=== PATIENT | female | born 1965 | race Caucasian/White ===

== ENCOUNTER 2018-09-02 23:22 | Emergency (ER) | payer MEDICAID ==
[~2018-09-02] VITALS: Ht 167.6 cm; Wt 104.3 kg
[2018-09-02 23:34] VITALS: BP 151/84
[2018-09-03] MEDS ORDERED: POTASSIUM CHL 20 Meq TABLET PO ONE (01:15)
[2018-09-03] MEDS ORDERED: FUROSEMIDE 20 MG TAB PO ONE (01:15)
== END 2018-09-03 01:30 | disposition home or self-care (01) ==
LOC: ER 23:31
DX: R60.0 Localized edema (principal)

== ENCOUNTER 2024-11-02 12:33 | Inpatient (IN) | payer OTHER, MEDICAID ==
[~2024-11-02] VITALS: Ht 162.6 cm; Wt 113.1 kg
--- NOTE | 2024-11-02 12:43 | ED.PDOC ---
History of Present Illness HPI Comments 59-year-old female with PMHx A-Fib presents with a chief complaint of SOB, palpitations, and anxiety. Patient states that she took a shower and when she got out, she started to feel really anxious and got SOB. Patient states that she became more anxious at the SOB and then started to feel her heart beat fast. Patient takes Eliquis for her A-Fib, and reports being compliant with her medications. Time Seen by MD: 12:35 Primary Care Provider: IRAJ Reviewed Notes: Medications, Allergies Allergies: Coded Allergies: NO KNOWN ALLERGIES (Unverified , 09/02/18) Information Source: Patient Mode of Arrival: EMS Severity: Moderate Timing: Minutes Duration: Minutes Prehospital treatment: 12 Lead EKG, Fare Collector Past Medical History PAST MEDICAL HISTORY: AFIB Surgical History: Denies all surgeries TOBACCO SAMPLER History: No Pertinent TOBACCO SAMPLER History Family History Family History: Unknown Social History Smoker: Non-Smoker Alcohol: Denies ETOH Use Drugs: Denies Drug Use Lives In: Home Constitutional: denies: chills, diaphoresis, fatigue, fever, malaise, sweats, weakness, others EENTM: denies: blurred vision, double vision, ear bleeding, ear discharge, ear drainage, ear pain, ear ringing, eye pain, eye redness, hearing loss, mouth pain, mouth swelling, nasal discharge, nose bleeding, nose congestion, nose pain, photophobia, tearing, throat pain, throat swelling, voice changes, others Respiratory: reports: shortness of breath; denies: cough, hemoptysis, orthopnea, SOB at rest, SOB with excertion, stridor, wheezing, others Cardiovascular: reports: palpitations; denies: chest pain, dizzy spells, diaphoresis, Dyspnea on exertion, edema, irregular heart beat, left arm pain, lightheadedness, PND, syncope, others Gastrointestinal: denies: abdomen distended, abdominal pain, blood streaked bowels, constipated, diarrhea, dysphagia, difficulty swallowing, hematemesis, melena, nausea, poor appetite, poor fluid intake, rectal bleeding, rectal pain, vomiting, others Genitourinary: denies: abnormal vagina bleeding, burning, dyspareunia, dysuria, flank pain, frequency, hematuria, incontinence, pain, , vagina discharge, urgency, others Neurological: denies: dizziness, fainting, headache, left sided numbness, left sided weakness, numbness, paresthesia, pre-existing deficit, right sided numbness, right sided weakness, seizure, speech problems, tingling, tremors, weakness, others Musculoskeletal: denies: back pain, gout, joint pain, joint swelling, muscle pain, muscle stiffness, neck pain, others Integumetry: denies: bruises, change in color, change in hair/nails, dryness, laceration, lesions, lumps, rash, wounds, others Allergic/Immunocompromised: denies: Difficulty Healing, Frequent Infections, Hives, Itching, others Hematologic/Lymphatic: denies: anemia, blood clots, easy bleeding, easy bruising, swollen glands, others Endocrine: denies: excessive hunger, excessive sweating, excessive thirst, excessive urination, flushing, intolerance to cold, intolerance to heat, unexplained weight gain, unexplained weight loss, others Psychiatric: reports: anxiety; denies: bipolar disorder, depression, hopeless, panic disorder, schizophrenia, sleepless, suicidal, others All Other Systems: Reviewed and Negative Physical Exam General Appearance: No Apparent Distress, Normal HEENT: Normal ENT Inspection, Pharynx Normal, TMs Normal Neck: Full Range of Motion, Non-Tender, Normal, Normal Inspection Respiratory: Chest Non-Tender, Lungs Clear, No Accessory Muscle Use, No Respiratory Distress, Normal Breath Sounds Cardiovascular: No Edema, No JVD, No Murmur, No Gallop, Normal Peripheral Pulses, Regular Rate/Rhythm Breast Exam: Deferred Gastrointestinal: No Organomegaly, Non Tender, No Pulsatile Mass, Normal Bowel Sounds, Soft Genitalia: Deferred Pelvic: Deferred Rectal: Deferred Extremities: No calf tenderness, Normal capillary refill, Normal inspection, Normal range of motion, Non-tender, No pedal edema Musculoskeletal : Apperance: Normal Neurologic: Alert, roof shingler II-XII nml as Tested, No Motor Deficits, Normal Affect, Normal Mood, No Sensory Deficits Cerebellar Function: Normal Reflexes: Normal Skin: Dry, Normal Color, Warm Lymphatic: No Adenopathy Was a procedure done? Was a procedure done?: No Differential Dx Considerations may include: AFib with RVR, electrolyte abnormality, infectious etiology, viral syndrome X-Ray, Labs, Meds, VS Vital Signs Date Time Temp Pulse Resp B/P (MAP) Pulse Ox O2 Delivery O2 Flow Rate FiO2 11/02/24 13:56 127 129/98 11/02/24 13:45 97.6 127 24 129/98 (108) 98 97.6 11/02/24 13:30 97.6 118 19 148/94 (112) 98 97.6 11/02/24 13:11 Nasal Cannula* 3 32 11/02/24 12:57 98.0 120 18 94/54 (67) 95 98.0 11/02/24 12:34 133 Lab Test 11/02/24 13:55 11/02/24 12:58 11/02/24 12:41 Range/Units Troponin I High Sensitivity Pending 3 L </=34 ng/L White Blood Count 9.3 4.4-10.8 10^3/uL Red Blood Count 4.51 4.0-5.20 10^6/uL Hemoglobin 12.0 L 12.2-16.2 g/dL Hematocrit 37.3 36.0-46.0 % Mean Corpuscular Volume 82.7 80.0-100.0 fL Mean Corpuscular Hemoglobin 26.5 L 28.0-32.0 pg Mean Corpuscular Hemoglobin Concent 32.1 32.0-36.0 g/dL Red Cell Distribution Width 15.5 H 11.8-14.3 % Platelet Count 255 140-450 10^3/uL Mean Platelet Volume 9.1 6.9-10.8 fL Neutrophils (%) (Auto) 75.7 37.0-80.0 % Lymphocytes (%) (Auto) 11.7 10.0-50.0 % Monocytes (%) (Auto) 10.2 0.0-12.0 % Eosinophils (%) (Auto) 1.4 0.0-7.0 % Basophils (%) (Auto) 1.0 0.0-2.0 % Neutrophils # (Auto) 7.0 1.6-8.6 10 ^3/uL Lymphocytes # (Auto) 1.1 0.4-5.4 10 ^3/uL Monocytes # (Auto) 0.9 0-1.3 10 ^3/uL Eosinophils # (Auto) 0.1 0-0.8 10 ^3/uL Basophils # (Auto) 0.1 0-0.2 10 ^3/uL Nucleated Red Blood Cells 0.1 % Sodium Level 139 136-145 mmol/L Potassium Level 4.1 3.5-5.1 mmol/L Chloride Level 102 98-107 mmol/L Carbon Dioxide Level 29 20-31 mmol/L Anion Gap 8 5-15 Blood Urea Nitrogen 20 9-23 mg/dL Creatinine 1.09 H 0.550-1.02 mg/dL Glomerular Filtration Rate Calc 58 >90 mL/min BUN/Creatinine Ratio 18.3 10.0-20.0 Serum Glucose 139 H 74-106 mg/dL Calcium Level 9.6 8.7-10.4 mg/dL B-Type Natriuretic Peptide 185.90 0-100 pg/mL POC Glucose 144 H 70-106 mg/dl Current Medications Medications (Trade) Dose Ordered Sig/Cale Route Start Time Stop Time Status Last Admin Metoprolol Tartrate (Lopressor) 5 mg ONCE ONCE IV 11/02/24 14:00 11/02/24 14:01 DC 11/02/24 13:56 Time of 1ST Reevaluation: 13:10 Reevaluation 1ST: Unchanged Patient Education/Counseling: Diagnosis, Treatment Family Education/Counseling: No Family Present Departure 1 Departure Time of Disposition: 14:19 (Patient presents with near-syncope. Found to have AFib with RVR. We will admit patient for further workup and expert consultation) Impression: Primary Impression: Atrial fibrillation with RVR Additional Impression: Near syncope Disposition: ADMITTED INPATIENT Admit to: Tele Condition: Guarded Critical Care Note Critical Care Time?: Yes Critical care comment: AFib with RVR Authorized and Performed by: Shailesh Chapman MD Total critical care time: Approximately 49 minutes Due to a high probability of clinically significant, life threatening deterioration, the patient required my highest level of preparedness to intervene emergently and I personally spent this critical care time directly and personally managing the patient. This critical care time included obtaining a history; examining the patient; pulse oximetry; ordering and review of studies; arranging urgent treatment with development of a management plan; evaluation of patient's response to treatment; frequent reassessment; and, discussions with other providers. This critical care time was performed to assess and manage the high probability of imminent, life-threatening deterioration that could result in multi-organ failure. It was exclusive of separately billable procedures and treating other patients and teaching time. Please see my other sections and the rest of the note for further information on patient assessment and treatment. Stability Stability form required: No I personally scribed for SHAILESH CHAPMAN MD ([email or web address]) on 11/02/24 at 12:43. Electronically submitted by Gael Coyle ([email or web address]). SHAILESH CHAPMAN MD November 02, 2024 12:43
[2024-11-02 13:20] LABS: Basophils # (auto) 0.1 10 ^3/uL (0-0.2); Eosinophils # (auto) 0.1 10 ^3/uL (0-0.8); Eosinophils % (auto) 1.4 % (0.0-7.0); Hematocrit 37.3 % (36.0-46.0); Lymphocytes # (auto) 1.1 10 ^3/uL (0.4-5.4); Lymphocytes % (auto) 11.7 % (10.0-50.0); Mean Corpuscular Hemoglobin 26.5 pg (28.0-32.0); Mean Corpuscular Hgb Conc. 32.1 g/dL (32.0-36.0); Mean Corpuscular Volume 82.7 fL (80.0-100.0); Monocytes # (auto) 0.9 10 ^3/uL (0-1.3); Monocytes % (auto) 10.2 % (0.0-12.0); Neutrophils % (auto) 75.7 % (37.0-80.0); Nucleated Red Blood Cells % 0.1 %; Platelet Count (auto) 255 10^3/uL (140-450); Red Blood Cells 4.51 10^6/uL (4.0-5.20); Red Cell Distribution Width 15.5 % (11.8-14.3); White Blood Cell 9.3 10^3/uL (4.4-10.8)
--- NOTE | 2024-11-02 13:25 | DVH ---
XY CHEST PORTABLE, HISTORY: palpitations COMPARISON: None None TECHNICAL DATA: 1 view of the chest was obtained. FINDINGS: Lines and tubes: None Cardiomediastinal silhouette: normal Pulmonary vasculature: normal Lung expansion: normal Lung airspace: normal Lung interstitium: normal Pleura: normal Pneumothorax: no Bones: Unremarkable Other: no IMPRESSION: No acute intrathoracic abnormality.
[2024-11-02 13:27] LABS: Chloride 102 mmol/L (98-107); Potassium 4.1 mmol/L (3.5-5.1); Sodium 139 mmol/L (136-145)
[2024-11-02 13:28] LABS: Anion Gap 8 (5-15); Calcium 9.6 mg/dL (8.7-10.4); Carbon Dioxide 29 mmol/L (20-31)
[2024-11-02 13:33] LABS: BUN/Creatinine Ratio 18.3 (10.0-20.0); Blood Urea Nitrogen 20 mg/dL (9-23)
[2024-11-02 13:34] LABS: Glucose 139 mg/dL (74-106)
[2024-11-02] MEDS: METOPROLOL TARTRATE 1MG/1ML-5ML VIAL IV ONE ×2 (13:56→15:16)
[2024-11-02] MEDS: CYCLOBENZAPRINE HCL 10 MG TAB PO ONE (16:42)
[2024-11-02] MEDS ORDERED: DOCUSATE SOD 100 MG CAP PO PRN (17:00)
[2024-11-02] MEDS ORDERED: ONDANSETRON HCL 4 MG/2 ML VIAL IV PRN (17:00)
--- NOTE | 2024-11-02 17:08 | DVHHP2 ---
Admitting Diagnosis: Shortness of breadth and anxiety History of Present Illness 59-year-old female with PMHx A-Fib presents with a chief complaint of SOB, palpitations, and anxiety. Patient states that she took a shower and when she got out, she started to feel really anxious and got SOB. Patient states that she became more anxious at the SOB and then started to feel her heart beat fast. Patient takes Eliquis for her A-Fib, and reports being compliant with her med ications. PAST MEDICAL HISTORY: AFIB Surgical History: Denies all surgeries FLARE MAN History: No Pertinent FLARE MAN History Family History Family History: Unknown Social History Smoker: Non-Smoker Alcohol: Denies ETOH Use Drugs: Denies Drug Use Lives In: Home Allergies: Coded Allergies: NO KNOWN ALLERGIES (Unverified , 09/02/18) Vital Signs Vital Signs Date Time Temp Pulse Resp B/P (MAP) Pulse Ox O2 Delivery O2 Flow Rate FiO2 11/02/24 16:00 116 130/68 11/02/24 16:00 98.8 29 96 98.8 11/02/24 13:11 Nasal Cannula* 3 32 Physical Exam Generally 59 years old woman, morbidly obese, lying in bed. No apparent distress HEENT-atraumatic, normocephalic Heart-irregularly irregular Lungs decreased breath sounds bilaterally Abdomen soft nontender nondistended Musculoskeletal-no edema cyanosis Neuro-AO x3, no focal deficits Results Labs Test 11/02/24 16:08 11/02/24 12:58 11/02/24 12:41 Range/Units Troponin I High Sensitivity 3 L </=34 ng/L White Blood Count 9.3 4.4-10.8 10^3/uL Red Blood Count 4.51 4.0-5.20 10^6/uL Hemoglobin 12.0 L 12.2-16.2 g/dL Hematocrit 37.3 36.0-46.0 % Mean Corpuscular Volume 82.7 80.0-100.0 fL Mean Corpuscular Hemoglobin 26.5 L 28.0-32.0 pg Mean Corpuscular Hemoglobin Concent 32.1 32.0-36.0 g/dL Red Cell Distribution Width 15.5 H 11.8-14.3 % Platelet Count 255 140-450 10^3/uL Mean Platelet Volume 9.1 6.9-10.8 fL Neutrophils (%) (Auto) 75.7 37.0-80.0 % Lymphocytes (%) (Auto) 11.7 10.0-50.0 % Monocytes (%) (Auto) 10.2 0.0-12.0 % Eosinophils (%) (Auto) 1.4 0.0-7.0 % Basophils (%) (Auto) 1.0 0.0-2.0 % Neutrophils # (Auto) 7.0 1.6-8.6 10 ^3/uL Lymphocytes # (Auto) 1.1 0.4-5.4 10 ^3/uL Monocytes # (Auto) 0.9 0-1.3 10 ^3/uL Eosinophils # (Auto) 0.1 0-0.8 10 ^3/uL Basophils # (Auto) 0.1 0-0.2 10 ^3/uL Nucleated Red Blood Cells 0.1 % Sodium Level 139 136-145 mmol/L Potassium Level 4.1 3.5-5.1 mmol/L Chloride Level 102 98-107 mmol/L Carbon Dioxide Level 29 20-31 mmol/L Anion Gap 8 5-15 Blood Urea Nitrogen 20 9-23 mg/dL Creatinine 1.09 H 0.550-1.02 mg/dL Glomerular Filtration Rate Calc 58 >90 mL/min BUN/Creatinine Ratio 18.3 10.0-20.0 Serum Glucose 139 H 74-106 mg/dL Calcium Level 9.6 8.7-10.4 mg/dL B-Type Natriuretic Peptide 185.90 0-100 pg/mL POC Glucose 144 H 70-106 mg/dl Primary Diagnosis AFib with RVR uncontrolled Plan Patient states she was diagnosed with AFib RVR on Eliquis 5 mg b.i.d. and metoprolol 75 mg b.i.d. patient says her heart rate was oz around 120s. In ED patient's heart rate goal over 110 to 140s Start amiodarone drip for heart rate goal less than 110 Check echo of the heart Cardiology consult for AFib with a RVR and control Resume Eliquis 5 mg b.i.d. Metoprolol 100 mg b.i.d. from 75 mg b.i.d. home dose Cardiac diet Full code Eliquis b.i.d. for anticoagulation No GI prophylaxis needed Plan discussed with: Patient Problems List: (1) Atrial fibrillation with RVR Status: Acute (2) Near syncope Status: Acute Date of Service: November 02, 2024 Billing Provider: MARILYN KILGORE MD Common Visit Codes: [id number] INP/OBS CARE (HIGH) MARILYN KILGORE MD November 02, 2024 17:08
[2024-11-02] MEDS: AMIODARONE BOLUS KIT 100 ML IV ONE (17:35)
[2024-11-02] MEDS: AMIODARONE 360mg/200mL PREMIX 200 ML IV ONE (18:00)
--- NOTE | 2024-11-02 19:06 | ECG ---
[facility] Test Date: 2024-11-02 Test Time: 12:34:19 Pat Name: KELLY RAYO Department: ED Room: 0215T Gender: F Environmental Analyst: bonifacio : 1965 Requested By: SHAILESH GARCIA Order Number: [id number] Reading MD: Wang Gomez Measurements Intervals [place] Rate: 133 P: 0 OK: 0 QRS: -8 QRSD: 84 T: 20 QT: 337 QTc: 502 Interpretive Statements Atrial fibrillation Electronically Signed On 11-06-2024 11:49:57 PDT by Wang Gomez Please click the below link to view image of tracing.
[2024-11-02 19:38] VITALS: RESP 21; O2SAT 96
[2024-11-02] MEDS: ACETAMINOPHEN 325 MG TAB PO PRN (21:15)
[2024-11-02] MEDS: METOPROLOL TARTRATE 50 MG TAB PO SCH (21:40)
[2024-11-02] MEDS: APIXABAN 5 MG TAB PO SCH (21:40)
[2024-11-02] MEDS: SODIUM CHLOR 0.9% PF (SALINE LOCK) 10ML VIAL/SYR IV SCH (21:41)
[2024-11-02] MEDS: AMIODARONE 360mg/200mL PREMIX 200 ML IV SCH (23:43)
[2024-11-03 07:21] VITALS: PULSE 78; RESP 22; O2SAT 98
[2024-11-03 10:42] LABS: Triglycerides 66 mg/dL (< 150)
[2024-11-03 10:43] LABS: LDL Cholesterol 77 mg/dL (< 100); Magnesium 1.7 mg/dL (1.6-2.6)
[2024-11-03 10:44] LABS: Cholesterol 138 mg/dL (< 200); HDL Cholesterol 53 mg/dL (40-59)
[2024-11-03 10:50] LABS: Blood Alcohol < 3.0 mg/dL (<10)
[2024-11-03 10:52] VITALS: BP 144/78; PULSE 98; RESP 20; TEMP 98.2; O2SAT 94
[2024-11-03] MEDS ORDERED: METF-371 PO (11:17)
[2024-11-03] MEDS ORDERED: ALBU108A5 IN (11:17)
[2024-11-03] MEDS ORDERED: LISI2.5T47 PO (11:17)
[2024-11-03] MEDS ORDERED: APIX5TAB PO (11:17)
[2024-11-03] MEDS ORDERED: MET50T PO (11:17)
--- NOTE | 2024-11-03 11:35 | DVHINCON2 ---
Date Seen: November 03, 2024 Referring Physician MD MAGUI Reason for Consultation AFib History of Present Illness This is a 59-year-old female with past medical history of AFib (stage III B), diabetes, hypertension, COPD, sleep apnea (on BiPAP with 3 L of oxygen), came to the hospital due to shortness of breath. Per patient, she has shortness of breaths (functional class 3), but yesterday when she was taking shower her shortness of breaths got worse which prompted this visit. She also reports palpitation, anxiety, chest discomfort, nausea, and generalized weakness. She denies fever, vomiting, abdominal pain, or any recent sick contact. Patient does not report any previous ischemic workup. PMHx: AFib (stage III B, diagnosed 3 months back), diabetes, hypertension, COPD, sleep apnea (on BiPAP with 3 L of oxygen) PSHx: and cholecystectomy Family history: Noncontributory Social history: Patient lives at [facility], visiting [facility] for granddaughter graduation, ex-smoker with 20 pack year history, denies any other drug use Home medication: Metformin, Lopressor 50 mg b.i.d., lisinopril 5 mg daily, Eliquis 5 mg b.i.d., albuterol, patient was previously given amiodarone after AFib diagnosis but has stopped by PCP 1 month back due to lung condition Allergic history: No known allergy Patient seen and examined at bedside. Patient is seen complained of mild shortness of breaths Past Medical History Per H&P Past Surgical History Per H&P Family History Per H&P Social History Per H&P Allergies: Coded Allergies: NO KNOWN ALLERGIES (Unverified , 09/02/18) Home Meds Active Scripts Amiodarone HCl (Amiodarone HCl) 200 Mg Tab, 100 MG PO DAILY, #30 TAB Prov:RIVKA JACKMAN MD 11/06/24 Reported Medications Albuterol Sulfate (Albuterol Sulfate Hfa) 108 Mcg/Act Aer, 108 MCG IN Q4HP, AER 11/03/24 Lisinopril (Lisinopril) 2.5 Mg Tab, 5 MG PO DAILY, TAB 11/03/24 Metoprolol Tartrate (LOPRESSOR TABLET) 50 Mg Tb, 1 TAB PO BID, #180 TAB 3 Refills 11/03/24 Apixaban Base (ELIQUIS) 5 Mg Tab, 5 MG PO BID, TAB 11/03/24 Metformin Hydrochloride (Metformin Hcl) 850 Mg Tab, 850 MG PO DAILY, TAB 11/03/24 Home Meds Per H&P Current Medications Current Medications Medications (Trade) Dose Ordered Sig/Cale Route PRN Reason Start Time Stop Time Status Last Admin Metoprolol Tartrate (Lopressor Tablet) 100 mg BID PO 11/02/24 22:00 11/03/24 09:55 Apixaban (Eliquis) 5 mg BID PO 11/02/24 22:00 11/03/24 09:54 Sodium Chloride (Saline Lock Ns) 10 ml Q8HR IV 11/02/24 22:00 11/03/24 06:21 Docusate Sodium (Colace Capsule) 100 mg BIDPRN PRN PO FOR CONSTIPATION 11/02/24 17:00 Acetaminophen (Tylenol Tablet) 650 mg Q6HP PRN PO PAIN SCALE 1-3 OR TEMP>100.4 11/02/24 17:00 11/03/24 06:48 Ondansetron HCl (Zofran) 4 mg Q4HP PRN IV NAUSEA / VOMITING 11/02/24 17:00 Review of Systems Per H&P Vital Signs Vital Signs Date Time Temp Pulse Resp B/P (MAP) Pulse Ox O2 Delivery O2 Flow Rate FiO2 11/03/24 10:52 98.2 98 20 144/78 (100) 94 98.2 11/03/24 07:21 Nasal Cannula* 3 32 Physical Exam General Appearance: Alert, Oriented X3, Cooperative, No acute distress HEENT: Atraumatic, PERRLA, EOMI, Mucous membrane moist/pink Respiratory: Bilateral lower zone mild crackles Cardiovascular: Regular rate, Normal S1, Normal S2, No murmurs, no chest wall tenderness Abdominal: Normal bowel sounds, Soft, No tenderness, No hepatospenomegaly, No masses Extremities: Bilateral grade 1 pedal edema Skin: No rashes, No breakdown, No significant lesion Neuro: Normal gait, Normal speech, Strength at 5/5 X4 ext, Normal tone, Sensation intact, Cranial nerves 3-12 NL, Reflexes 2+ Psych/Mental Status: Mental status NL, Mood NL Labs/Diagnostic Data Labs Test 11/03/24 10:05 11/03/24 07:09 11/02/24 16:08 11/02/24 12:58 Range/Units Magnesium Level 1.7 1.6-2.6 mg/dL Triglycerides Level 66 < 150 mg/dL Cholesterol Level 138 < 200 mg/dL LDL Cholesterol 77 < 100 mg/dL HDL Cholesterol 53 40-59 mg/dL Thyroid Stimulating Hormone (TSH) 3.46 0.55-4.78 uIU/mL Plasma/Serum Blood Alcohol < 3.0 <10 mg/dL POC Glucose 111 H 70-106 mg/dl Troponin I High Sensitivity 3 L </=34 ng/L White Blood Count 9.3 4.4-10.8 10^3/uL Red Blood Count 4.51 4.0-5.20 10^6/uL Hemoglobin 12.0 L 12.2-16.2 g/dL Hematocrit 37.3 36.0-46.0 % Mean Corpuscular Volume 82.7 80.0-100.0 fL Mean Corpuscular Hemoglobin 26.5 L 28.0-32.0 pg Mean Corpuscular Hemoglobin Concent 32.1 32.0-36.0 g/dL Red Cell Distribution Width 15.5 H 11.8-14.3 % Platelet Count 255 140-450 10^3/uL Mean Platelet Volume 9.1 6.9-10.8 fL Neutrophils (%) (Auto) 75.7 37.0-80.0 % Lymphocytes (%) (Auto) 11.7 10.0-50.0 % Monocytes (%) (Auto) 10.2 0.0-12.0 % Eosinophils (%) (Auto) 1.4 0.0-7.0 % Basophils (%) (Auto) 1.0 0.0-2.0 % Neutrophils # (Auto) 7.0 1.6-8.6 10 ^3/uL Lymphocytes # (Auto) 1.1 0.4-5.4 10 ^3/uL Monocytes # (Auto) 0.9 0-1.3 10 ^3/uL Eosinophils # (Auto) 0.1 0-0.8 10 ^3/uL Basophils # (Auto) 0.1 0-0.2 10 ^3/uL Nucleated Red Blood Cells 0.1 % Sodium Level 139 136-145 mmol/L Potassium Level 4.1 3.5-5.1 mmol/L Chloride Level 102 98-107 mmol/L Carbon Dioxide Level 29 20-31 mmol/L Anion Gap 8 5-15 Blood Urea Nitrogen 20 9-23 mg/dL Creatinine 1.09 H 0.550-1.02 mg/dL Glomerular Filtration Rate Calc 58 >90 mL/min BUN/Creatinine Ratio 18.3 10.0-20.0 Serum Glucose 139 H 74-106 mg/dL Calcium Level 9.6 8.7-10.4 mg/dL B-Type Natriuretic Peptide 185.90 0-100 pg/mL Assessment Acute hypoxic respiratory failure, likely due to heart failure Acute on chronic heart failure, likely due to AFib with RVR AFib (stage IIIb) with RVR Acquired hyper coagulopathy Diabetes type 2 Hypertension Dyslipidemia Obstructive sleep apnea, on BiPAP Morbid obesity COPD, stable * EKGs shows AFib with RVR, with no significant ST or T-wave changes * BNP is raised at 185, trop I is within normal limits * Benson Vasc score: 3 * Has bled score: 0 Plan/Recommendation (Case discussed with Dr. May) * Continue Eliques, metorpolol and amiodarone drip * Lasix 20mg daily * Tab. Amiodarone 100mg daily after drip finished * we sign off the patient, follow up with Dr. May in the office for further work up/management * Keep K above 4, and Mag above 2 * Rest of plan, per primary team Thank you for allowing us to participate in this patient's care. Please call if you have any questions or concerns. Plan discussed with: Patient, Other (RN) NYHA Physical activity limitations: NA Date of Service: November 03, 2024 Billing Provider: ANALI MAY MD Cardiology Common Codes: [id number] INP/OBS CARE (High) JOSESUKUMARSHEBAGEOVANNA RESDIENT November 03, 2024 11:35
--- NOTE | 2024-11-03 13:43 | DVHPN2 ---
Subjective The patient seen and examined at bedside. No complains of chest pain. Reviewed: Care Plan, H&P, Labs, Medications, Previous Orders, Radiology Changes from previous H/P or p: No Changes Objective Vitals Vital Signs Date Time Temp Pulse Resp B/P (MAP) Pulse Ox O2 Delivery O2 Flow Rate FiO2 11/03/24 11:44 Nasal Cannula* 3 32 11/03/24 10:55 98 144/78 11/03/24 10:52 98.2 20 94 98.2 Intake/Output Intake and Output 11/03/24 07:00 Intake Total 366.62 ml Balance 366.62 ml Intake IV Total 366.62 ml General Appearance: Alert, Oriented X3, Cooperative, No acute distress HEENT: Atraumatic, PERRLA, EOMI, Mucous membr. moist/pink Neck: Supple Lungs: Clear to auscultation Cardiovascular: Regular rate, Normal S1, Normal S2, No murmurs, Gallops, Rubs Abdomen: Normal bowel sounds, Soft, No tenderness, No hepatospenomegaly, No masses Neuro: Cranial nerves 3-12 NL Psych/Mental Status: Mental status NL Medications Current Medications Medications Dose Ordered Sig/Cale Route Start Time Stop Time Status Last Admin Dose Admin Metoprolol Tartrate 100 mg BID PO 11/02/24 22:00 11/03/24 09:55 100 MG Apixaban 5 mg BID PO 11/02/24 22:00 11/03/24 09:54 5 MG Sodium Chloride 10 ml Q8HR IV 11/02/24 22:00 11/03/24 06:21 10 ML Docusate Sodium 100 mg BIDPRN PRN PO 11/02/24 17:00 Acetaminophen 650 mg Q6HP PRN PO 11/02/24 17:00 11/03/24 06:48 650 MG Ondansetron HCl 4 mg Q4HP PRN IV 11/02/24 17:00 Furosemide 20 mg DAILY IV 11/04/24 10:00 Laboratory Results Laboratory Tests 11/02/24 12:58 Chemistry Test 11/03/24 10:05 Magnesium Level 1.7 mg/dL (1.6-2.6) Lipid panel Test 11/03/24 10:05 Cholesterol Level 138 mg/dL (< 200) HDL Cholesterol 53 mg/dL (40-59) Triglycerides Level 66 mg/dL (< 150) HgA1c, TSH Test 11/03/24 10:05 Thyroid Stimulating Hormone (TSH) 3.46 uIU/mL (0.55-4.78) Labs and/or images reviewed: Labs reviewed by me Assessment/Plan Assessment/Plan AFib with RVR uncontrolled Acute congestive heart failure Hypertension Hyperlipidemia Diabetes type 2 Obstructive sleep apnea COPD Continue current management. Continue with elequis, metoprolol amiodarone drip waiting for automation test engineer to see patient Waiting for echo Continuing sliding scale insulin. This medical document was created using an electronic medical record system with [employer] dictation system. Although this document has been carefully reviewed, there may still be some phonetic and typographical errors. These areas are purely typographical due to imperfections of the software programs, and do not reflect any compromise in the patient's medical care. Plan discussed with: Patient Date of Service: November 03, 2024 Billing Provider: RIVKA JACKMAN MD Common Visit Codes: [id number] INP/OBS CARE(HIGH) RIVKA JACKMAN MD November 03, 2024 13:43
[2024-11-03] MEDS: FUROSEMIDE 20 MG/2 ML VIAL IV ONE (14:41)
--- NOTE | 2024-11-03 18:38 | DVHINCON2 ---
Date Seen: November 03, 2024 Referring Physician MD Harry Reason for Consultation AFib History of Present Illness This is a 59-year-old female with past medical history of AFib (stage III B), diabetes, hypertension, COPD, sleep apnea (on BiPAP with 3 L of oxygen) who presented to the ED with complaints of shortness of breath. Per patient, she has shortness of breaths (functional class 3), but yesterday when she was taking shower her shortness of breath got worse which prompted this visit. Patient endorses heart palpitations, anxiety, chest discomfort, nausea, and generalized weakness. Patient does not report any previous ischemic workup. CBC is unremarkable. TROP is negative x3. Chest x-ray showed NAD. Patient was admitted to the hospital. I am asked to consult on this patient. Family History: Alzheimer's disease G8 MOTHER, Cardiovascular disease G8 MOTHER, G8 BROTHER Diabetes mellitus G8 MOTHER, Hypercholesterolemia G8 MOTHER, Hypertension G8 MOTHER, G8 BROTHER Allergies: Coded Allergies: NO KNOWN ALLERGIES (Unverified , 09/02/18) Home Meds Reported Medications Albuterol Sulfate (Albuterol Sulfate Hfa) 108 Mcg/Act Aer, 108 MCG IN Q4HP, AER 11/03/24 Lisinopril (Lisinopril) 2.5 Mg Tab, 5 MG PO DAILY, TAB 11/03/24 Metoprolol Tartrate (LOPRESSOR TABLET) 50 Mg Tb, 1 TAB PO BID, #180 TAB 3 Refills 11/03/24 Apixaban Base (ELIQUIS) 5 Mg Tab, 5 MG PO BID, TAB 11/03/24 Metformin Hydrochloride (Metformin Hcl) 850 Mg Tab, 850 MG PO DAILY, TAB 11/03/24 Current Medications Current Medications Medications (Trade) Dose Ordered Sig/Cale Route PRN Reason Start Time Stop Time Status Last Admin Metoprolol Tartrate (Lopressor Tablet) 100 mg BID PO 11/02/24 22:00 11/03/24 09:55 Apixaban (Eliquis) 5 mg BID PO 11/02/24 22:00 11/03/24 09:54 Sodium Chloride (Saline Lock Ns) 10 ml Q8HR IV 11/02/24 22:00 11/03/24 06:21 Docusate Sodium (Colace Capsule) 100 mg BIDPRN PRN PO FOR CONSTIPATION 11/02/24 17:00 Acetaminophen (Tylenol Tablet) 650 mg Q6HP PRN PO PAIN SCALE 1-3 OR TEMP>100.4 11/02/24 17:00 11/03/24 06:48 Ondansetron HCl (Zofran) 4 mg Q4HP PRN IV NAUSEA / VOMITING 11/02/24 17:00 Furosemide (Lasix Injection) 20 mg DAILY IV 11/04/24 10:00 Review of Systems Constitutional: denies: chills, diaphoresis, fatigue, fever, malaise, sweats, weakness, others EENTM: denies: blurred vision, double vision, ear bleeding, ear discharge, ear drainage, ear pain, ear ringing, eye pain, eye redness, hearing loss, mouth pain, mouth swelling, nasal discharge, nose bleeding, nose congestion, nose pain, photophobia, tearing, throat pain, throat swelling, voice changes, others Respiratory: reports: shortness of breath; denies: cough, hemoptysis, orthopnea, SOB at rest, SOB with excertion, stridor, wheezing, others Cardiovascular: reports: palpitations; denies: chest pain, dizzy spells, diaphoresis, Dyspnea on exertion, edema, irregular heart beat, left arm pain, lightheadedness, PND, syncope, others Gastrointestinal: denies: abdomen distended, abdominal pain, blood streaked bowels, constipated, diarrhea, dysphagia, difficulty swallowing, hematemesis, melena, nausea, poor appetite, poor fluid intake, rectal bleeding, rectal pain, vomiting, others Genitourinary: denies: abnormal vagina bleeding, burning, dyspareunia, dysuria, flank pain, frequency, hematuria, incontinence, pain, , vagina discharge, urgency, others Neurological: denies: dizziness, fainting, headache, left sided numbness, left sided weakness, numbness, paresthesia, pre-existing deficit, right sided numbness, right sided weakness, seizure, speech problems, tingling, tremors, weakness, others Musculoskeletal: denies: back pain, gout, joint pain, joint swelling, muscle pain, muscle stiffness, neck pain, others Integumetry: denies: bruises, change in color, change in hair/nails, dryness, laceration, lesions, lumps, rash, wounds, others Allergic/Immunocompromised: denies: Difficulty Healing, Frequent Infections, Hives, Itching, others Hematologic/Lymphatic: denies: anemia, blood clots, easy bleeding, easy bruising, swollen glands, others Endocrine: denies: excessive hunger, excessive sweating, excessive thirst, excessive urination, flushing, intolerance to cold, intolerance to heat, unexplained weight gain, unexplained weight loss, others Psychiatric: reports: anxiety; denies: bipolar disorder, depression, hopeless, panic disorder, schizophrenia, sleepless, suicidal, others All Other Systems: Reviewed and Negative Vital Signs Vital Signs Date Time Temp Pulse Resp B/P (MAP) Pulse Ox O2 Delivery O2 Flow Rate FiO2 11/03/24 11:44 Nasal Cannula* 3 32 11/03/24 10:55 98 144/78 11/03/24 10:52 98.2 20 94 98.2 Physical Exam GENERAL: Alert and oriented x 3. No acute distress. EYES: PERRL, EOMI. Anicteric. HENT: Moist mucous membranes. LUNGS: Decreased breath sounds. CARDIOVASCULAR: Regular rate and rhythm. ABDOMEN: Soft, nontender and nondistended. EXTREMITIES: +1 BLE edema. NEUROLOGIC: No focal neurological deficits. SKIN: Warm, dry. Labs/Diagnostic Data Labs Test 11/03/24 10:05 11/03/24 07:09 11/02/24 16:08 11/02/24 12:58 Range/Units Magnesium Level 1.7 1.6-2.6 mg/dL Triglycerides Level 66 < 150 mg/dL Cholesterol Level 138 < 200 mg/dL LDL Cholesterol 77 < 100 mg/dL HDL Cholesterol 53 40-59 mg/dL Thyroid Stimulating Hormone (TSH) 3.46 0.55-4.78 uIU/mL Plasma/Serum Blood Alcohol < 3.0 <10 mg/dL POC Glucose 111 H 70-106 mg/dl Troponin I High Sensitivity 3 L </=34 ng/L White Blood Count 9.3 4.4-10.8 10^3/uL Red Blood Count 4.51 4.0-5.20 10^6/uL Hemoglobin 12.0 L 12.2-16.2 g/dL Hematocrit 37.3 36.0-46.0 % Mean Corpuscular Volume 82.7 80.0-100.0 fL Mean Corpuscular Hemoglobin 26.5 L 28.0-32.0 pg Mean Corpuscular Hemoglobin Concent 32.1 32.0-36.0 g/dL Red Cell Distribution Width 15.5 H 11.8-14.3 % Platelet Count 255 140-450 10^3/uL Mean Platelet Volume 9.1 6.9-10.8 fL Neutrophils (%) (Auto) 75.7 37.0-80.0 % Lymphocytes (%) (Auto) 11.7 10.0-50.0 % Monocytes (%) (Auto) 10.2 0.0-12.0 % Eosinophils (%) (Auto) 1.4 0.0-7.0 % Basophils (%) (Auto) 1.0 0.0-2.0 % Neutrophils # (Auto) 7.0 1.6-8.6 10 ^3/uL Lymphocytes # (Auto) 1.1 0.4-5.4 10 ^3/uL Monocytes # (Auto) 0.9 0-1.3 10 ^3/uL Eosinophils # (Auto) 0.1 0-0.8 10 ^3/uL Basophils # (Auto) 0.1 0-0.2 10 ^3/uL Nucleated Red Blood Cells 0.1 % Sodium Level 139 136-145 mmol/L Potassium Level 4.1 3.5-5.1 mmol/L Chloride Level 102 98-107 mmol/L Carbon Dioxide Level 29 20-31 mmol/L Anion Gap 8 5-15 Blood Urea Nitrogen 20 9-23 mg/dL Creatinine 1.09 H 0.550-1.02 mg/dL Glomerular Filtration Rate Calc 58 >90 mL/min BUN/Creatinine Ratio 18.3 10.0-20.0 Serum Glucose 139 H 74-106 mg/dL Calcium Level 9.6 8.7-10.4 mg/dL B-Type Natriuretic Peptide 185.90 0-100 pg/mL Assessment Acute hypoxic respiratory failure, likely due to heart failure. Acute on chronic heart failure, likely due to AFib with RVR. AFib (stage IIIb) with RVR. Acquired hyper coagulopathy. Diabetes type 2. Hypertension. Dyslipidemia. Obstructive sleep apnea, on BiPAP. Morbid obesity. COPD. Plan/Recommendation I agree with your ongoing assessment and care of plan. Patient has been seen by Zenaida Scalesdrea resident, we have discussed the plan with the patient EKGs shows AFib with RVR, with no significant ST or T-wave changes. BNP is raised at 185, trop I is within normal limits. Benson Vasc score: 3. Has bled score: 0. Continue Eliquis, metorpolol and amiodarone drip. Lasix 20mg daily. Keep K above 4, and Mag above 2. Check echo. Rest of plan, per primary team. Additional plan as per the hospital course. A total of 45 minutes was spent reviewing the patient record, examining the patient, making a diagnostic and therapeutic plan, discussing this plan with medical personnel, following up on diagnostic studies and following the patient for clinical stability excluding any and all procedures. At least 50% of this time was spent in direct, [id number] contact. Plan discussed with: Patient NYHA Physical activity limitations: NA Date of Service: November 03, 2024 Billing Provider: ANALI MAY MD Cardiology Common Codes: [id number] [facility] CARE Cardiology Consultation Codes: [id number] CONSULT <45MIN ANALI MAY MD November 03, 2024 12:43
[2024-11-03] MEDS: HYALURONIDASE 150 UNIT/1 ML SUBCUT ONE (19:19)
[2024-11-03 20:00] VITALS: PULSE 112; RESP 17; O2SAT 97
[2024-11-03 21:00] VITALS: BP 131/91; PULSE 112; RESP 17; TEMP 98.4; O2SAT 97
[2024-11-04] VITALS (9 sets, daily range): BP systolic 108–127; BP diastolic 68–91; PULSE 71–106; RESP 17–20; TEMP 96.7–97.7; O2SAT 95–98
--- NOTE | 2024-11-04 01:21 | DVHSR ---
APPROVED REPORT EXAM: Two-dimensional and M-mode echocardiogram with Doppler and color Doppler. Blood Pressure: 122/87 mmHg INDICATION AFIB with RVR RISK FACTORS Height: 64, Weight: 250 DIMENSIONS LVDd4.7 (3.8-5.7cm)LA (2D)5.3 (1.9-4.0cm)Aortic Root3.1 (2.0-3.7cm) LVDs3.5 (2.5-4.0cm)LA (MM) (1.9-4.0cm)Aortic Cusp Exc1.8 (1.5-2.0cm) EF (%) 51.0 (55-70%)Rt. Atrium4.3 (1.9-4.0cm)Asc. Aorta3.3 cm IVSd1.1 (0.7-1.1cm)RV (D) (1.8-2.4cm) PWd1.4 (0.7-1.1cm) Mitral Valve MitralMitral Stenosis E wave1.30m/sMV Mean GR.3mmHg A wavem/sMV Peak GR.91mmHg E/A ratio0.02D MVAcm2 Aortic Valve Aortic ValveAortic Stenosis V11.00m/Ki Mean GR.4mmHg V21.35m/Ki Peak GR.7mmHg LVOT Diameter1.9 (1.8-2.4cm)Doppler AVA2.10cm2 Pulmonic Valve V20.82m/s Tricuspid Valve TR Velocity2.41m/s [id number] Other Information Technically limited study due to body habitus and patient's rhythm. Conclusion MODERATELY DILATED LV GLOBAL LV HYPOKINESIS LV EF IS 35% AND IS REDUCED HEAVILY CALCIFIED POSTERIOR MITRAL LEAFLET MODERATELY DILATED LA MODERATE DEGREE MR MODERATE DEGREE PULMONARY HYPERTENSION NO EFFUSION
[2024-11-04] MEDS: FUROSEMIDE 20 MG/2 ML VIAL IV SCH (09:21)
--- NOTE | 2024-11-04 14:18 | DVHPN2 ---
Subjective The patient seen and examined at bedside. No complains of chest pain. Reviewed: Care Plan, H&P, Labs, Medications, Previous Orders, Radiology Changes from previous H/P or p: No Changes Objective Vitals Vital Signs Date Time Temp Pulse Resp B/P (MAP) Pulse Ox O2 Delivery O2 Flow Rate FiO2 11/04/24 12:57 96.9 91 20 108/68 (81) 96 96.9 11/04/24 08:10 Nasal Cannula* 3 32 Intake/Output Intake and Output 11/04/24 07:00 Intake Total 736.66 ml Balance 736.66 ml Intake Oral 520 ml IV Total 216.66 ml # Voids 5 General Appearance: Alert, Oriented X3, Cooperative, No acute distress HEENT: Atraumatic, PERRLA, EOMI, Mucous membr. moist/pink Neck: Supple Lungs: Clear to auscultation Cardiovascular: Regular rate, Normal S1, Normal S2, No murmurs, Gallops, Rubs Abdomen: Normal bowel sounds, Soft, No tenderness, No hepatospenomegaly, No masses Neuro: Cranial nerves 3-12 NL Psych/Mental Status: Mental status NL Medications Current Medications Medications Dose Ordered Sig/Cale Route Start Time Stop Time Status Last Admin Dose Admin Metoprolol Tartrate 100 mg BID PO 11/02/24 22:00 11/04/24 09:20 100 MG Apixaban 5 mg BID PO 11/02/24 22:00 11/04/24 09:20 5 MG Sodium Chloride 10 ml Q8HR IV 11/02/24 22:00 11/04/24 14:11 10 ML Docusate Sodium 100 mg BIDPRN PRN PO 11/02/24 17:00 Acetaminophen 650 mg Q6HP PRN PO 11/02/24 17:00 11/03/24 06:48 650 MG Ondansetron HCl 4 mg Q4HP PRN IV 11/02/24 17:00 Furosemide 20 mg DAILY IV 11/04/24 10:00 11/04/24 09:21 20 MG Amiodarone HCl 100 mg DAILY PO 11/04/24 10:00 Hold Laboratory Results Laboratory Tests 11/02/24 12:58 Labs and/or images reviewed: Labs reviewed by me Assessment/Plan Assessment/Plan AFib with RVR uncontrolled Acute congestive heart failure Hypertension Hyperlipidemia Diabetes type 2 Obstructive sleep apnea COPD Continue current management. 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 This medical document was created using an electronic medical record system with [email or web address] direct computerized dictation system. Although this document has been carefully reviewed, there may still be some phonetic and typographical errors. These areas are purely typographical due to imperfections of the software programs, and do not reflect any compromise in the patient's medical care. Plan discussed with: Patient Date of Service: November 04, 2024 Billing Provider: RIVKA JACKMAN MD Common Visit Codes: [id number] INP/OBS CARE(HIGH) RIVKA JACKMAN MD November 04, 2024 14:18
--- NOTE | 2024-11-04 19:56 | DVHPN2 ---
Progress Note - Dictate Date Seen: November 04, 2024 Medical Necessity Reason Pt with a Central, PICC or Fol: No Subjective Patient was seen and evaluated in follow up. Patient is complaining of generalized pain. Patient reports chest pain has resolved. Echocardiogram shows an EF of 35%. Lipid panel is WNL. Telemetry reviewed. vital signs Vital Sign Date Time Temp Pulse Resp B/P (MAP) Pulse Ox O2 Delivery O2 Flow Rate FiO2 11/04/24 12:57 96.9 91 20 108/68 (81) 96 96.9 11/04/24 08:10 Nasal Cannula* 3 32 Total Intake and Output 11/03/24 11/03/24 11/04/24 15:00 23:00 07:00 Intake Total 16.66 ml 300 ml 420 ml Balance 16.66 ml 300 ml 420 ml medications Current Medications Medications Dose Ordered Sig/Cale Route Start Time Stop Time Status Last Admin Dose Admin Metoprolol Tartrate 100 mg BID PO 11/02/24 22:00 11/04/24 09:20 100 MG Apixaban 5 mg BID PO 11/02/24 22:00 11/04/24 09:20 5 MG Sodium Chloride 10 ml Q8HR IV 11/02/24 22:00 11/04/24 14:11 10 ML Docusate Sodium 100 mg BIDPRN PRN PO 11/02/24 17:00 Acetaminophen 650 mg Q6HP PRN PO 11/02/24 17:00 11/03/24 06:48 650 MG Ondansetron HCl 4 mg Q4HP PRN IV 11/02/24 17:00 Furosemide 20 mg DAILY IV 11/04/24 10:00 11/04/24 09:21 20 MG Amiodarone HCl 100 mg DAILY PO 11/04/24 10:00 Hold objective GENERAL: Alert and oriented x 3. No acute distress. EYES: PERRL, EOMI. Anicteric. HENT: Moist mucous membranes. LUNGS: Decreased breath sounds. CARDIOVASCULAR: Regular rate and rhythm. ABDOMEN: Soft, nontender and nondistended. EXTREMITIES: +1 BLE edema. NEUROLOGIC: No focal neurological deficits. SKIN: Warm, dry. laboratory and microbiology Laboratory Tests 11/02/24 12:58 Test 11/02/24 12:58 Range/Units Serum Glucose 139 H 74-106 mg/dL Problem List Acute hypoxic respiratory failure, likely due to heart failure. Acute on chronic heart failure, likely due to AFib with RVR. AFib (stage IIIb) with RVR. Acquired hyper coagulopathy. Diabetes type 2. Hypertension. Dyslipidemia. Obstructive sleep apnea, on BiPAP. Morbid obesity. COPD. Pulmonary HTN. Assessment/Plan Continued all current supportive medical care. Eliquis. Metoprolol. Diuretics with Lasix. Additional plan as per the hospital course. Plan discussed with: Patient ANALI MAY MD November 04, 2024 15:02
[2024-11-04] MEDS: AMIODARONE HCL 200 MG TAB PO ONE (22:06)
[2024-11-05] VITALS (8 sets, daily range): BP systolic 84–117; BP diastolic 58–88; PULSE 76–130; RESP 16–20; TEMP 96–98.7; O2SAT 94–98
[2024-11-05] MEDS: AMIODARONE HCL 200 MG TAB PO SCH (09:06)
--- NOTE | 2024-11-05 13:29 | DVHPN2 ---
Subjective The patient seen and examined at bedside. No complains of chest pain. Patient had couple of episodes of hypotension. Amiodarone had be change to a low dose. Daughters at bedside Reviewed: Care Plan, H&P, Labs, Medications, Previous Orders, Radiology Changes from previous H/P or p: No Changes Objective Vitals Vital Signs Date Time Temp Pulse Resp B/P (MAP) Pulse Ox O2 Delivery O2 Flow Rate FiO2 11/05/24 13:00 96.0 91 18 84/58 (67) 94 96.0 11/05/24 08:00 Nasal Cannula* 3 32 Intake/Output Intake and Output 11/05/24 07:00 Intake Total 1070 ml Balance 1070 ml Intake Oral 1070 ml # Voids 7 General Appearance: Alert, Oriented X3, Cooperative, No acute distress HEENT: Atraumatic, PERRLA, EOMI, Mucous membr. moist/pink Neck: Supple Lungs: Clear to auscultation Cardiovascular: Regular rate, Normal S1, Normal S2, No murmurs, Gallops, Rubs Abdomen: Normal bowel sounds, Soft, No tenderness, No hepatospenomegaly, No masses Neuro: Cranial nerves 3-12 NL Psych/Mental Status: Mental status NL Medications Current Medications Medications Dose Ordered Sig/Cale Route Start Time Stop Time Status Last Admin Dose Admin Metoprolol Tartrate 100 mg BID PO 11/02/24 22:00 11/05/24 09:06 100 MG Apixaban 5 mg BID PO 11/02/24 22:00 11/05/24 09:06 5 MG Sodium Chloride 10 ml Q8HR IV 11/02/24 22:00 11/05/24 05:19 10 ML Docusate Sodium 100 mg BIDPRN PRN PO 11/02/24 17:00 Acetaminophen 650 mg Q6HP PRN PO 11/02/24 17:00 11/03/24 06:48 650 MG Ondansetron HCl 4 mg Q4HP PRN IV 11/02/24 17:00 Furosemide 20 mg DAILY IV 11/04/24 10:00 11/05/24 09:07 20 MG Amiodarone HCl 100 mg DAILY PO 11/04/24 10:00 11/05/24 09:06 100 MG Laboratory Results Laboratory Tests 11/02/24 12:58 Labs and/or images reviewed: Labs reviewed by me Assessment/Plan Assessment/Plan AFib with RVR uncontrolled Acute congestive heart failure Hypertension, now hypotension Hyperlipidemia Diabetes type 2 Obstructive sleep apnea COPD Plan: Continue current management. 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 Discharge planning This medical document was created using an electronic medical record system with [employer] computerized dictation system. Although this document has been carefully reviewed, there may still be some phonetic and typographical errors. These areas are purely typographical due to imperfections of the software programs, and do not reflect any compromise in the patient's medical care. Plan discussed with: Patient, Daughter My Orders Orders - RIVKA JACKMAN MD Procedure Category Date Status Time Electrocardigram EKG 11/05/24 Logged 13:00 Date of Service: November 05, 2024 Billing Provider: RIVKA JACKMAN MD Common Visit Codes: [id number] INP/OBS CARE(HIGH) RIVKA JACKMAN MD November 05, 2024 13:29
--- NOTE | 2024-11-05 15:00 | DVHPN2 ---
Progress Note - Dictate Date Seen: November 05, 2024 Medical Necessity Reason Pt with a Central, PICC or Fol: No Subjective Patient was seen and evaluated in follow up. Patient complains of generalized weakness and shortness of breath. 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 BS are in the 150's. Telemetry reviewed. vital signs Vital Sign Date Time Temp Pulse Resp B/P (MAP) Pulse Ox O2 Delivery O2 Flow Rate FiO2 11/05/24 13:00 96.0 91 18 84/58 (67) 94 96.0 11/05/24 08:00 Nasal Cannula* 3 32 Total Intake and Output 11/04/24 11/04/24 11/05/24 15:00 23:00 07:00 Intake Total 820 ml 250 ml Balance 820 ml 250 ml medications Current Medications Medications Dose Ordered Sig/Cale Route Start Time Stop Time Status Last Admin Dose Admin Metoprolol Tartrate 100 mg BID PO 11/02/24 22:00 11/05/24 09:06 100 MG Apixaban 5 mg BID PO 11/02/24 22:00 11/05/24 09:06 5 MG Sodium Chloride 10 ml Q8HR IV 11/02/24 22:00 11/05/24 05:19 10 ML Docusate Sodium 100 mg BIDPRN PRN PO 11/02/24 17:00 Acetaminophen 650 mg Q6HP PRN PO 11/02/24 17:00 11/03/24 06:48 650 MG Ondansetron HCl 4 mg Q4HP PRN IV 11/02/24 17:00 Furosemide 20 mg DAILY IV 11/04/24 10:00 11/05/24 09:07 20 MG Amiodarone HCl 100 mg DAILY PO 11/04/24 10:00 11/05/24 09:06 100 MG objective GENERAL: Alert and oriented x 3. No acute distress. EYES: PERRL, EOMI. Anicteric. HENT: Moist mucous membranes. LUNGS: Decreased breath sounds. CARDIOVASCULAR: Regular rate and rhythm. ABDOMEN: Soft, nontender and nondistended. EXTREMITIES: +1 BLE edema. NEUROLOGIC: No focal neurological deficits. SKIN: Warm, dry. laboratory and microbiology Laboratory Tests 11/02/24 12:58 Test 11/02/24 12:58 Range/Units Serum Glucose 139 H 74-106 mg/dL Problem List Acute hypoxic respiratory failure, likely due to heart failure. Acute on chronic heart failure, likely due to AFib with RVR. AFib (stage IIIb) with RVR. Acquired hyper coagulopathy. Diabetes type 2. Hypertension. Dyslipidemia. Obstructive sleep apnea, on BiPAP. Morbid obesity. COPD. Pulmonary HTN. Assessment/Plan Continued all current supportive medical care. Eliquis. Amiodarone. Metoprolol. Diuretics with Lasix. Additional plan as per the hospital course. Plan discussed with: Patient ANALI MAY MD November 05, 2024 13:27
[2024-11-06 01:00] VITALS: BP 120/81; PULSE 99; RESP 19; TEMP 98.2; O2SAT 95
[2024-11-06 05:00] VITALS: BP 125/86; PULSE 88; RESP 19; TEMP 98.1; O2SAT 94
[2024-11-06 08:00] VITALS: PULSE 83; RESP 20; O2SAT 93
[2024-11-06 08:44] VITALS: BP 99/72; PULSE 72; RESP 20; TEMP 98; O2SAT 96
[2024-11-06 12:57] VITALS: BP 119/70; PULSE 71; RESP 20; TEMP 97.8; O2SAT 91
[2024-11-06] MEDS ORDERED: AMIO200T13 PO (13:54)
--- NOTE | 2024-11-06 13:54 | DVHDS2 ---
Discharge Summary Date of Admission November 02, 2024 at 16:58 Date of Discharge: November 06, 2024 Admitting Diagnosis AFib with RVR uncontrolled Acute congestive heart failure Hypertension, now hypotension Hyperlipidemia Diabetes type 2 Obstructive sleep apnea COPD Labs/Diagnostic Data: Laboratory Results Test 11/05/24 12:05 11/03/24 10:05 11/02/24 16:08 11/02/24 12:58 POC Glucose 157 mg/dl (70-106) Magnesium Level 1.7 mg/dL (1.6-2.6) Triglycerides Level 66 mg/dL (< 150) Cholesterol Level 138 mg/dL (< 200) LDL Cholesterol 77 mg/dL (< 100) HDL Cholesterol 53 mg/dL (40-59) Thyroid Stimulating Hormone (TSH) 3.46 uIU/mL (0.55-4.78) Plasma/Serum Blood Alcohol < 3.0 mg/dL (<10) Troponin I High Sensitivity 3 ng/L (</=34) White Blood Count 9.3 10^3/uL (4.4-10.8) Red Blood Count 4.51 10^6/uL (4.0-5.20) Hemoglobin 12.0 g/dL (12.2-16.2) Hematocrit 37.3 % (36.0-46.0) Mean Corpuscular Volume 82.7 fL (80.0-100.0) Mean Corpuscular Hemoglobin 26.5 pg (28.0-32.0) Mean Corpuscular Hemoglobin Concent 32.1 g/dL (32.0-36.0) Red Cell Distribution Width 15.5 % (11.8-14.3) Platelet Count 255 10^3/uL (140-450) Mean Platelet Volume 9.1 fL (6.9-10.8) Neutrophils (%) (Auto) 75.7 % (37.0-80.0) Lymphocytes (%) (Auto) 11.7 % (10.0-50.0) Monocytes (%) (Auto) 10.2 % (0.0-12.0) Eosinophils (%) (Auto) 1.4 % (0.0-7.0) Basophils (%) (Auto) 1.0 % (0.0-2.0) Neutrophils # (Auto) 7.0 10 ^3/uL (1.6-8.6) Lymphocytes # (Auto) 1.1 10 ^3/uL (0.4-5.4) Monocytes # (Auto) 0.9 10 ^3/uL (0-1.3) Eosinophils # (Auto) 0.1 10 ^3/uL (0-0.8) Basophils # (Auto) 0.1 10 ^3/uL (0-0.2) Nucleated Red Blood Cells 0.1 % Sodium Level 139 mmol/L (136-145) Potassium Level 4.1 mmol/L (3.5-5.1) Chloride Level 102 mmol/L (98-107) Carbon Dioxide Level 29 mmol/L (20-31) Anion Gap 8 (5-15) Blood Urea Nitrogen 20 mg/dL (9-23) Creatinine 1.09 mg/dL (0.550-1.02) Glomerular Filtration Rate Calc 58 mL/min (>90) BUN/Creatinine Ratio 18.3 (10.0-20.0) Serum Glucose 139 mg/dL (74-106) Calcium Level 9.6 mg/dL (8.7-10.4) B-Type Natriuretic Peptide 185.90 pg/mL (0-100) Other Laboratory Tests 11/02/24 12:58 Brief Hx & Hospital Course: This is 59 years old female with past medical history atrial fibrillation come to emergency department because severe shortness for breath, heart palpitation and anxiety. The patient apparently took a shower and when she gets out she started feeling anxious and shortness for breath. She also feel her heart beat fast. She is taking Eliquis for her atrial fibrillation and compliant with her medication. The patient decided to come to hospital for further evaluation. The patient was found to have atrial fibrillation with RVR. Heart rate is above 120. The patient was admitted. The patient was put on amiodarone drip and subsequently switched to amiodarone. The patient can not tolerate 200 mg amiodarone . Her blood pressure is low. So exhaust machine operator, Dr. Contreras switch the patient to amiodarone 100 mg one tablet daily. The patient tolerated the new regimen. Heart rate controlled. No hypotension. Today I am going to discharge her home. Advised her to follow up with primary care physician 1-2 weeks. Follow up with exhaust machine operator per schedule. Activity as tolerated. Diet per home diet. Recommend low-salt low-cholesterol diet. Physical exam: HEENT: Normocephalic atraumatic pupils equal react to light and accommodation. Extraocular muscles intact, conjunctiva pink, oropharynx moist, no thrush, no exudate. Lymphatic: No lymphadenopathy Cardiovascular exam: S1, S2 was heard. No murmurs, rubs, gallops Lung: Clear on auscultation bilaterally, no wheeze, rale, rhonchi. GI: Abdominal soft, nondistended, nontenderness, positive bowel sounds. Extremity: No crepitus, cyanosis, edema. Pedal pulses present bilateral. Full range of motion. Skin: Normal turgor, no rash. Psych: Alert, oriented x3. Neurology: No focal deficits, cranial nerve II to XII grossly intact. This medical document was created using an electronic medical record system with [employer] computerized dictation system. Although this document has been carefully reviewed, there may still be some phonetic and typographical errors. These areas are purely typographical due to imperfections of the software programs, and do not reflect any compromise in the patient's medical care. Condition at Discharge: Stable Final Diagnosis/Problems List AFib with RVR uncontrolled Acute congestive heart failure Hypertension, now hypotension Hyperlipidemia Diabetes type 2 Obstructive sleep apnea COPD Discharge Disposition: Home Discharge Instruct/Medications Diet: Cardiac 2g Na,low cholest Activity: No Restrictions, As Tolerated Follow Up/Referral: PCP 1-2 weeks Cardiology per schedule Medications: amiodarone 100 mg p.o. daily Resume home meds Discharge Statement: "Patient was advised to return to the ER or call 911 if any headaches, dizziness, shortness of breath, chest pain, abdominal pain, bleeding, fevers, or worsening of medical condition. Patient was counseled about treatment plan, medications, possible side effects, patientverbalized understanding. All questions were answered to the best of my ability. This discharge took greater then 30 minutes in planning, reviewing documentation, counseling the patient, and discussing with other team members." ASSESSMENT ASSESSMENT Assessment Date of Service: November 06, 2024 Billing Provider: RIVKA JACKMAN MD Common Visit Codes: 17123-TIX/OBS DISCH DAY >30min RIVKA JACKMAN MD November 06, 2024 13:54
[2024-11-06 14:07] VITALS: BP 119/70; PULSE 71; RESP 20; TEMP 97.8; O2SAT 91
--- NOTE | 2024-11-06 23:36 | DVHPN2 ---
Progress Note - Dictate Date Seen: November 06, 2024 Medical Necessity Reason Pt with a Central, PICC or Fol: No Subjective Patient was seen and evaluated in follow up. Patient has no new complaints at this time. Patient denies any cardiac symptoms. Patient is cardiac stable for discharge. Telemetry reviewed. vital signs Vital Sign Date Time Temp Pulse Resp B/P (MAP) Pulse Ox O2 Delivery O2 Flow Rate FiO2 11/06/24 14:07 97.8 71 20 91 11/06/24 12:57 119/70 (86) 11/06/24 08:00 Nasal Cannula* 2 28 Total Intake and Output 11/05/24 11/05/24 11/06/24 15:00 23:00 07:00 Intake Total 900 ml 480 ml Balance 900 ml 480 ml objective GENERAL: Alert and oriented x 3. No acute distress. EYES: PERRL, EOMI. Anicteric. HENT: Moist mucous membranes. LUNGS: Decreased breath sounds. CARDIOVASCULAR: Regular rate and rhythm. ABDOMEN: Soft, nontender and nondistended. EXTREMITIES: +1 BLE edema. NEUROLOGIC: No focal neurological deficits. SKIN: Warm, dry. laboratory and microbiology Laboratory Tests 11/02/24 12:58 Test 11/02/24 12:58 Range/Units Serum Glucose 139 H 74-106 mg/dL Problem List Acute hypoxic respiratory failure, likely due to heart failure. Acute on chronic heart failure, likely due to AFib with RVR. AFib (stage IIIb) with RVR. Acquired hyper coagulopathy. Diabetes type 2. Hypertension. Dyslipidemia. Obstructive sleep apnea, on BiPAP. Morbid obesity. COPD. Pulmonary HTN. Assessment/Plan Continued all current supportive medical care. Eliquis. Amiodarone. Metoprolol. Diuretics with Lasix. Additional plan as per the hospital course. Plan discussed with: Patient ANALI MAY MD November 06, 2024 23:36
--- NOTE | 2024-11-07 13:41 | ECG ---
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
== END 2024-11-06 14:55 | disposition home or self-care (01) | DRG 291 ==
LOC: EDUNIT# 12:33 → EDBD 12:33 → ER 12:33 → OVERFLOW 16:58 → TELE-EAST 11-03 10:55 → TELE-CENTR 11-05 22:35
PROVIDERS: ADMIT Internal Medicine; ATTEND Internal Medicine
DX: I11.0 Hypertensive heart disease with heart failure (principal); I50.33 Acute on chronic diastolic (congestive) heart failure; J96.01 Acute respiratory failure with hypoxia; I48.91 Unspecified atrial fibrillation; E11.9 Type 2 diabetes mellitus without complications; E66.01 Morbid (severe) obesity due to excess calories; E78.5 Hyperlipidemia, unspecified; G47.33 Obstructive sleep apnea (adult) (pediatric); I27.20 Pulmonary hypertension, unspecified; J44.9 Chronic obstructive pulmonary disease, unspecified; Z83.3 Family history of diabetes mellitus; Z82.49 Family history of ischemic heart disease and other diseases of the circulatory system; Z82.0 Family history of epilepsy and other diseases of the nervous system; Z79.899 Other long term (current) drug therapy; Z79.01 Long term (current) use of anticoagulants
CPT/HCPCS: 36415; 71045; 80048; 80061; 80320; 82962; 83735; 83880; 84443; 84484; 85025; 93005; 93306; 96365; 96375; 99291; G0378; J3470